=== PATIENT | female | born 1980 | race Caucasian/White ===

== ENCOUNTER 2016-09-15 13:06 | Emergency (ER) | payer OTHER ==
[2016-09-15 13:11] VITALS: BP 127/90; PULSE 94; TEMP 98.3; BMI 28.3
--- NOTE | 2016-09-15 13:37 | PDOC ---
History of Present Illness - General Chief Complaint: Sore Throat Stated Complaint: THROAT PAIN, POSSIBLE INFECTION Time Seen by Provider: 09/15/16 13:31 History Source: Patient, Parent(s) Exam Limitations: No Limitations - History of Present Illness Initial Comments: 09/15/16 13:34 BIB mom with cough and congestion x 3 days; no fever Timing/Duration: reports: getting worse Severity: reports: mild Possible Cause: Yes: no prior episodes, illness exposure (mom is sick also) Modifying Factors: improves with: albuterol inhaler Past History - Past Medical History Allergies/Adverse Reactions: Allergies Allergy/AdvReac Type Severity Reaction Status Date / Time No Known Allergies Allergy Verified 05/19/14 14:26 Home Medications: Ambulatory Orders Tobramycin 0.3% Ophth Soln [Tobrex Ophthalmic Solution -] 2 drop OD Q6HPO #1 drops 05/19/14 Asthma: Yes - Psycho/Social/Smoking Cessation Hx Anxiety: No Suicidal Ideation: No Smoking History: Never smoked Have you smoked in the past 12 months: No Information on smoking cessation initiated: No Hx Alcohol Use: No Drug/Substance Use Hx: No Substance Use Type: None Review of Systems - Review of Systems Constitutional: Yes: Malaise. No: Chills, Fever HEENTM: Yes: Nose Pain, Nose Congestion Respiratory: Yes: Cough, Wheezing Cardiac (ROS): No: Symptoms Reported ABD/GI: No: Symptoms Reported *Physical Exam - Vital Signs Last Vital Signs Temp Pulse Resp BP Pulse Ox 98.3 F 94 H 18 127/90 100 09/15/16 13:09 09/15/16 13:09 09/15/16 13:09 09/15/16 13:09 09/15/16 13:09 - Physical Exam General Appearance: Yes: Appropriately Dressed. No: Apparent Distress HEENT: positive: TMs Normal, Nasal Congestion, Rhinorrhea, Other (post nasal drip) Neck: positive: Supple. negative: Tender, Rigid, Lymphadenopathy (R), Lymphadenopathy (L) Respiratory/Chest: positive: Lungs Clear. negative: Respiratory Distress, Accessory Muscle Use, Labored Respiration, Wheezing Cardiovascular: positive: Regular Rhythm, Tachycardia. negative: Murmur Medical Decision Making - Medical Decision Making 09/15/16 13:36 feeling better post 1 combivent *DC/Admit/Observation/Transfer Diagnosis at time of Disposition: Acute bronchitis with bronchospasm - Discharge Dispostion Disposition: HOME Condition at time of disposition: Stable Admit: No - Patient Instructions Additional Instructions: see local MD this week if no better - Post Discharge Activity Work/School Note: Back to School
--- NOTE | 2016-09-15 14:07 | PDOC ---
History of Present Illness - General Chief Complaint: Sore Throat Stated Complaint: THROAT PAIN, POSSIBLE INFECTION Time Seen by Provider: 09/15/16 13:31 Past History - Past Medical History Allergies/Adverse Reactions: Allergies Allergy/AdvReac Type Severity Reaction Status Date / Time No Known Allergies Allergy Verified 05/19/14 14:26 Home Medications: Ambulatory Orders Albuterol 0.083% Nebulizer Jadyn [Ventolin 0.083% Nebulizer Soln -] 1 neb NEB QID #90 vial 09/15/16 Albuterol Sulfate Inhaler - [Ventolin HFA Inhaler -] 2 inh PO Q4H #1 inh Asthma: Yes - Psycho/Social/Smoking Cessation Hx Anxiety: No Suicidal Ideation: No Smoking History: Never smoked Have you smoked in the past 12 months: No Information on smoking cessation initiated: No Hx Alcohol Use: No Drug/Substance Use Hx: No Substance Use Type: None *Physical Exam - Vital Signs Last Vital Signs Temp Pulse Resp BP Pulse Ox 98.3 F 94 H 18 127/90 100 09/15/16 13:09 09/15/16 13:09 09/15/16 13:09 09/15/16 13:09 09/15/16 13:09 *DC/Admit/Observation/Transfer Diagnosis at time of Disposition: Bronchospasm with bronchitis, acute Sinusitis Qualifiers: Sinusitis location: unspecified location Chronicity: acute Recurrence: recurrent Qualified Code(s): J01.91 - Acute recurrent sinusitis, unspecified - Discharge Dispostion Disposition: HOME Condition at time of disposition: Stable - Prescriptions Prescriptions: Albuterol 0.083% Nebulizer Jadyn [Ventolin 0.083% Nebulizer Soln -] 1 neb NEB QID #90 vial Albuterol Sulfate Inhaler - [Ventolin HFA Inhaler -] 2 inh PO Q4H #1 inh - Referrals Referrals: Khurram Villanueva [Primary Care Provider] - - Patient Instructions Additional Instructions: see local MD this week if no better - Post Discharge Activity Work/School Note: Back to School
== END 2016-09-15 14:18 | disposition home or self-care (01) ==
LOC: JERFT 13:06
DX: J01.91 Acute recurrent sinusitis, unspecified (principal)
CPT/HCPCS: 99281-25

== ENCOUNTER 2017-08-17 11:28 | Emergency (ER) | payer OTHER ==
[2017-08-17 11:33] VITALS: BP 134/83; PULSE 129; TEMP 100.8; BMI 27.3
[2017-08-17] MEDS ORDERED: IBUPROFEN 600 MG TABLET (FP) PO ONE (11:33)
[2017-08-17] MEDS ORDERED: ALBUTEROL SO4 2.5/IPRATROPIUM 0.5 INH SOL 3 ML VIAL.NEB. NEB ONE ×2 (12:37→12:42)
[2017-08-17] MEDS ORDERED: ONDANSETRON *ODT* 4 MG TABLET SL ONE (12:37)
[2017-08-17] MEDS ORDERED: ACETAMINOPHEN 325 MG TABLET (FP) PO ONE (12:37)
--- NOTE | 2017-08-17 12:37 | PDOC ---
History of Present Illness - General Chief Complaint: Cold Symptoms Stated Complaint: SORE THROAT, HEADACHE Time Seen by Provider: 08/17/17 12:28 Past History - Past Medical History Allergies/Adverse Reactions: Allergies Allergy/AdvReac Type Severity Reaction Status Date / Time No Known Allergies Allergy Verified 08/17/17 11:30 Home Medications: Ambulatory Orders Ibuprofen 800 mg PO TID #30 tablet 08/17/17 Ondansetron [Zofran Odt -] 4 mg SL TID #10 od.tablet 08/17/17 Oseltamivir Phosphate [Tamiflu] 75 mg PO BID #10 capsule 08/17/17 Asthma: Yes COPD: No Hypercholesterolemia: Yes - Suicide/Smoking/Psychosocial Hx Smoking History: Never smoked Have you smoked in the past 12 months: No Information on smoking cessation initiated: No Hx Alcohol Use: No Drug/Substance Use Hx: No Substance Use Type: None *Physical Exam - Vital Signs Last Vital Signs Temp Pulse Resp BP Pulse Ox 100.8 F H 129 H 20 134/83 100 08/17/17 11:31 08/17/17 11:31 08/17/17 11:31 08/17/17 11:31 08/17/17 11:31 ED Treatment Course - Medications Given in the ED: ED Medications Discontinued Medications Generic Name Dose Route Start Last Admin Trade Name Freq PRN Reason Stop Dose Admin Ibuprofen 600 mg 08/17/17 11:33 08/17/17 11:34 Motrin - PO 08/17/17 11:34 600 mg NOW ONE Administration *DC/Admit/Observation/Transfer Diagnosis at time of Disposition: Flu-like symptoms - Discharge Dispostion Disposition: HOME Condition at time of disposition: Stable Admit: No - Prescriptions Prescriptions: Ibuprofen 800 mg PO TID #30 tablet Ondansetron [Zofran Odt -] 4 mg SL TID #10 od.tablet Oseltamivir Phosphate [Tamiflu] 75 mg PO BID #10 capsule - Referrals Referrals: Khurram Villanueva [Primary Care Provider] - - Patient Instructions Printed Discharge Instructions: DI for Influenza -- Adult Additional Instructions: Usted tiene la gripe. Ed[place] es un virus Debera mejorar en los prximos 7 cool. [place] el Tamiflu dos veces al da jessica 5 cool para ayudarla con blanac sntomas. Se envi tiesha receta a la farmacia. Por favor, tome Motrin 800 mg cada 8 horas para las fiebres, mirlande de meenakshi y dolor de cuerpo. Use vaughan albuterol cada 4 horas, segn sea necesario para la tos. Beber mucho lquido. Miguel A un seguimiento con vaughan mdico de atencin primaria esta semana. Regrese al departamento de emergencias si tiene tos, dificultad para respirar, mareos, aturdimiento, dificultad para respirar o cambios en blanca sntomas. You have the flu. This is a virus. It should get better within the next 7 days. Please take the Tamiflu twice a day for 5 days to help with her symptoms. A prescription has been sent to the pharmacy. Please take Motrin 800 mg every 8 hours for the fevers, headaches and body aches. Use her albuterol every 4 hours as needed for cough. Drink plenty of fluids. Follow-up with your primary care doctor this week. Return to the emergency department if you have worsening cough, shortness of breath, dizziness, lightheadedness, difficulty breathing, or have any changes in your symptoms. Print Language: TURKMEN - Post Discharge Activity Forms/Work/School Notes: Back to Work
[2017-08-17] MEDS ORDERED: ACETAMINOPHEN 325 MG TABLET (FP) ONE (12:41)
[2017-08-17] MEDS ORDERED: ONDANSETRON *ODT* 4 MG TABLET ONE (12:41)
== END 2017-08-17 15:24 | disposition home or self-care (01) ==
LOC: JERFT 11:28
PROC: 3E0F7GC Introduction of Other Therapeutic Substance into Respiratory Tract, Via Natural or Artificial Opening (ICD-10-PCS; principal; 2017-08-17)
DX: J11.1 Influenza due to unidentified influenza virus with other respiratory manifestations (principal); J45.909 Unspecified asthma, uncomplicated; E78.00 Pure hypercholesterolemia, unspecified
CPT/HCPCS: 87070; 87430; 94640; 99281-25

== ENCOUNTER 2023-09-11 11:40 | Emergency (ER) | payer OTHER ==
[2023-09-11 11:56] VITALS: BP 150/90; PULSE 105; RESP 20; TEMP 99.9; BMI 28.3
[2023-09-11] MEDS ORDERED: ACETAMINOPHEN 500 MG TABLET (FP) ONE (13:11)
[2023-09-11] MEDS ORDERED: KETOROLAC TROMETHAMINE 30 MG/1 ML VIAL ONE (13:11)
[2023-09-11] MEDS: KETOROLAC TROMETHAMINE 30 MG/1 ML VIAL IM ONE (13:17)
[2023-09-11] MEDS: ACETAMINOPHEN 500 MG TABLET (FP) PO ONE (13:18)
== END 2023-09-11 14:17 | disposition home or self-care (01) ==
LOC: JERFT 11:40 → JER 11:40 → JERFT 14:17
PROC: 3E0233Z Introduction of Anti-inflammatory into Muscle, Percutaneous Approach (ICD-10-PCS; principal; 2023-09-11)
DX: R50.9 Fever, unspecified (principal); R51.9 Headache, unspecified; R09.81 Nasal congestion; J02.9 Acute pharyngitis, unspecified; J10.1 Influenza due to other identified influenza virus with other respiratory manifestations; Z20.822 Contact with and (suspected) exposure to COVID-19
CPT/HCPCS: 0241U-QW; 87651; 99284-25